=== PATIENT | female | born 1950 | race Caucasian/White ===

== ENCOUNTER 2017-10-29 05:45 | Inpatient (IN) | payer MEDICARE, OTHER ==
[2017-10-29 07:07] LABS: ADD MAN DIFF? NO
[2017-10-29 07:11] LABS: WHITE BLOOD COUNT 15.7 10^3/ul (4.8-10.8)
[2017-10-29 07:11] LABS: ABNORMAL IP MESSAGE 1; BASOPHILS % 0.2 % (0.0-2.0); EOSINOPHILS % 0.1 % (0.0-7.0); HEMATOCRIT 33.8 % (37.0-47.0); HEMOGLOBIN 12.5 g/dl (12.0-16.0); LYMPHOCYTES # 1.6 10^3/ul (0.8-2.9); LYMPHOCYTES % 10.4 % (15.0-51.0); MEAN CORPUSCULAR HEMOGLOBIN 33.2 pg (29.0-33.0); MEAN CORPUSCULAR VOLUME 89.7 fl (82.0-101.0); MEAN PLATELET VOLUME 10.5 fl (7.4-10.4); MONOCYTE # 2.1 10^3/ul (0.3-0.9); MONOCYTES % 13.2 % (0.0-11.0); NEUTROPHIL # 11.9 10^3/ul (1.6-7.5); NEUTROPHILS % 75.7 % (39.0-77.0); PLATELET COUNT 221 10^3/UL (140-415); RED BLOOD COUNT 3.77 10^6/ul (4.20-5.40); RED CELL DISTRIBUTION WIDTH 13.1 % (11.5-14.5)
[2017-10-29 07:12] LABS: ADD UMIC YES; UR ASCORBIC ACID NEGATIVE (NEGATIVE); UR BILIRUBIN (Dip) NEGATIVE (NEGATIVE); UR BLOOD (Dip) 1+ mg/dL (NEGATIVE); UR CLARITY CLEAR (CLEAR); UR COLOR YELLOW (YELLOW); UR GLUCOSE (Dip) NEGATIVE (NEGATIVE); UR KETONES (Dip) 1+ mg/dL (NEGATIVE); UR LEUKOCYTE ESTERASE (Dip) NEGATIVE Leu/ul (NEGATIVE); UR NITRITE (Dip) NEGATIVE (NEGATIVE); UR RBC 1 /HPF (0-5); UR SPECIFIC GRAVITY (Dip) 1.016 (1.003-1.030); UR TOTAL PROTEIN (Dip) NEGATIVE (NEGATIVE); UR UROBILINOGEN (Dip) NEGATIVE (NEGATIVE); UR WBC 1 /HPF (0-5)
[2017-10-29] MEDS: LORAZEPAM 2 MG INJ IV ×2 (07:21→09:46)
[2017-10-29 07:25] LABS: POSITIVE DIFF @See below
[2017-10-29] MEDS: HALOPERIDOL 5 MG INJ IM (07:27)
[2017-10-29 07:29] LABS: ALANINE AMINOTRANSFERASE 43 IU/L (13-69); ALBUMIN 4.9 g/dl (3.3-4.9); ALBUMIN/GLOBULIN RATIO 1.88; ALKALINE PHOSPHATASE 91 IU/L (42-121); ANION GAP 27 (8-16); ASPARTATE AMINO TRANSFERASE 48 IU/L (15-46); BILIRUBIN,INDIRECT 0.7 mg/dl (0-1.1); BILIRUBIN,TOTAL 0.7 mg/dl (0.2-1.3); BLOOD UREA NITROGEN 27 mg/dl (7-20); CARBON DIOXIDE 23 mmol/L (21-31); CHLORIDE 92 mmol/L (97-110); CREATININE 1.07 mg/dl (0.44-1.00); GLUCOSE 127 mg/dl (70-220); INR 0.99; POTASSIUM 3.5 mmol/L (3.5-5.1); PROTIME 13.2 Sec (11.9-14.9); SODIUM 138 mmol/L (135-144); TOTAL PROTEIN 7.5 g/dl (6.1-8.1)
[2017-10-29 07:30] LABS: PARTIAL THROMBOPLASTIN TIME 33.7 Sec (25.0-35.0)
[2017-10-29] MEDS: SODIUM CHLORIDE 0.9% 1L BAG IV* (07:32)
[2017-10-29 07:37] LABS: ACETAMINOPHEN < 10.0 ug/ml (10.0-30.0); ETHANOL < 10.0 mg/dl; SALICYLATE < 1.0 mg/dl (5.0-30.0)
[2017-10-29 07:44] LABS: LACTIC ACID 2.3 mmol/L (0.5-2.0)
[2017-10-29 07:44] LABS: TROPONIN-I < 0.012 ng/ml (0.00-0.12)
[2017-10-29 07:56] LABS: AMPHETAMINE/METHAMPHETAMINE Negative (NEGATIVE); BARBITURATES Negative (NEGATIVE); BENZODIAZEPINES Negative (NEGATIVE); CANNABINOIDS Negative (NEGATIVE); COCAINE Negative (NEGATIVE); OPIATES Positive (NEGATIVE)
[2017-10-29 08:21] LABS: LACTIC ACID 1.7 mmol/L (0.5-2.0)
[2017-10-29] MEDS ORDERED: ONDANSETRON 4 MG INJ IV (09:00)
[2017-10-29] MEDS ORDERED: ACETAMINOPHEN 325 MG TAB PO (09:00)
[2017-10-29] MEDS: AZTREONAM 1 GM/NS (PMX) 50 ML IVPB (09:25)
[2017-10-29] MEDS: VANCOMYCIN 1 GM (PMX) 250 ML IVPB (09:45)
[2017-10-29] MEDS: D5W-0.45 NACL + KCL 20 MEQ 1,000 ML IV (16:20)
[2017-10-29] MEDS: CEFEPIME 1GM/50 ML (PMX) 50 ML IVPB ×2 (16:20→22:54)
[2017-10-29] MEDS: LEVETIRACETAM 1000 MG (PMX) 100 ML IVPB (20:17)
[2017-10-29] MEDS ORDERED: LEVETIRACETAM 500 MG (PMX) 100 ML IVPB (21:00)
[2017-10-30] MEDS ORDERED: VANCOMYCIN IV PER PHARMACY XX (01:00)
[2017-10-30] MEDS: D5W-0.45 NACL + KCL 20 MEQ 1,000 ML IV ×3 (02:20→15:40)
[2017-10-30] MEDS: CEFEPIME 1GM/50 ML (PMX) 50 ML IVPB ×3 (05:31→22:25)
[2017-10-30] MEDS: LEVOTHYROXINE 88 MCG TAB PO (05:32)
[2017-10-30 05:54] LABS: ADD MAN DIFF? NO
[2017-10-30 05:59] LABS: BASOPHILS % 0.1 % (0.0-2.0); EOSINOPHILS % 0.4 % (0.0-7.0); HEMATOCRIT 30.1 % (37.0-47.0); HEMOGLOBIN 10.9 g/dl (12.0-16.0); LYMPHOCYTES # 1.4 10^3/ul (0.8-2.9); LYMPHOCYTES % 18.2 % (15.0-51.0); MEAN CORPUSCULAR HEMOGLOBIN 32.7 pg (29.0-33.0); MEAN CORPUSCULAR HGB CONC 36.2 g/dl (32.0-37.0); MEAN CORPUSCULAR VOLUME 90.4 fl (82.0-101.0); MEAN PLATELET VOLUME 10.1 fl (7.4-10.4); MONOCYTES % 12.5 % (0.0-11.0); NEUTROPHIL # 5.2 10^3/ul (1.6-7.5); NEUTROPHILS % 68.3 % (39.0-77.0); PLATELET COUNT 156 10^3/UL (140-415); RED BLOOD COUNT 3.33 10^6/ul (4.20-5.40); RED CELL DISTRIBUTION WIDTH 13.3 % (11.5-14.5)
[2017-10-30 05:59] LABS: WHITE BLOOD COUNT 7.7 10^3/ul (4.8-10.8)
[2017-10-30] MEDS: VANCOMYCIN 1.5 GM in SOD CHLORIDE 0.9% 250 ML IVPB (06:07)
[2017-10-30 06:34] LABS: ALANINE AMINOTRANSFERASE 39 IU/L (13-69); ALBUMIN 4.1 g/dl (3.3-4.9); ALBUMIN/GLOBULIN RATIO 1.78; ALKALINE PHOSPHATASE 64 IU/L (42-121); ANION GAP 18 (8-16); ASPARTATE AMINO TRANSFERASE 37 IU/L (15-46); BILIRUBIN,INDIRECT 0.6 mg/dl (0-1.1); BILIRUBIN,TOTAL 0.6 mg/dl (0.2-1.3); BLOOD UREA NITROGEN 8 mg/dl (7-20); CALCIUM 9.3 mg/dl (8.4-10.2); CARBON DIOXIDE 26 mmol/L (21-31); CHLORIDE 105 mmol/L (97-110); CREATININE 0.66 mg/dl (0.44-1.00); GLUCOSE 123 mg/dl (70-220); MAGNESIUM 1.3 mg/dl (1.7-2.5); SODIUM 146 mmol/L (135-144); TOTAL PROTEIN 6.4 g/dl (6.1-8.1)
[2017-10-30 07:04] LABS: POTASSIUM 2.9 mmol/L (3.5-5.1)
[2017-10-30] MEDS ORDERED: LEVETIRACETAM 500 MG TAB PO (09:00)
[2017-10-30] MEDS: LEVETIRACETAM 1000 MG (PMX) 100 ML IVPB ×2 (09:20→21:32)
[2017-10-30] MEDS: MAGNESIUM SULFATE 3 GM in DEXTROSE 5% 100 ML IVPB (10:08)
[2017-10-30] MEDS: METOPROLOL (XL) 100 MG TAB PO (10:13)
[2017-10-30] MEDS: POTASSIUM CHLORIDE 40 MEQ in DEXTROSE 5% 250 ML IV (13:32)
[2017-10-30] MEDS: VANCOMYCIN 1 GM 250 ML IVPB (18:31)
[2017-10-31] MEDS: D5W-0.45 NACL + KCL 20 MEQ 1,000 ML IV ×3 (05:00→21:58)
[2017-10-31] MEDS: LEVOTHYROXINE 88 MCG TAB PO (05:40)
[2017-10-31] MEDS: CEFEPIME 1GM/50 ML (PMX) 50 ML IVPB ×3 (05:40→21:58)
[2017-10-31] MEDS: VANCOMYCIN 1 GM 250 ML IVPB ×2 (06:25→17:37)
[2017-10-31 06:48] LABS: ADD MAN DIFF? NO
[2017-10-31 06:54] LABS: WHITE BLOOD COUNT 6.1 10^3/ul (4.8-10.8)
[2017-10-31 06:54] LABS: BASOPHILS % 0.3 % (0.0-2.0); EOSINOPHILS % 0.5 % (0.0-7.0); HEMATOCRIT 30.8 % (37.0-47.0); HEMOGLOBIN 10.6 g/dl (12.0-16.0); LYMPHOCYTES % 16.3 % (15.0-51.0); MEAN CORPUSCULAR HEMOGLOBIN 31.8 pg (29.0-33.0); MEAN CORPUSCULAR HGB CONC 34.4 g/dl (32.0-37.0); MEAN CORPUSCULAR VOLUME 92.5 fl (82.0-101.0); MONOCYTE # 0.8 10^3/ul (0.3-0.9); MONOCYTES % 12.4 % (0.0-11.0); NEUTROPHIL # 4.2 10^3/ul (1.6-7.5); NEUTROPHILS % 69.7 % (39.0-77.0); PLATELET COUNT 169 10^3/UL (140-415); RED BLOOD COUNT 3.33 10^6/ul (4.20-5.40); RED CELL DISTRIBUTION WIDTH 13.7 % (11.5-14.5)
[2017-10-31 07:27] LABS: ALANINE AMINOTRANSFERASE 38 IU/L (13-69); ALBUMIN 3.9 g/dl (3.3-4.9); ALBUMIN/GLOBULIN RATIO 1.39; ALKALINE PHOSPHATASE 70 IU/L (42-121); ANION GAP 13 (8-16); ASPARTATE AMINO TRANSFERASE 23 IU/L (15-46); BILIRUBIN,INDIRECT 0.5 mg/dl (0-1.1); BILIRUBIN,TOTAL 0.5 mg/dl (0.2-1.3); BLOOD UREA NITROGEN 5 mg/dl (7-20); CALCIUM 9.2 mg/dl (8.4-10.2); CARBON DIOXIDE 31 mmol/L (21-31); CHLORIDE 105 mmol/L (97-110); CREATININE 0.62 mg/dl (0.44-1.00); GLUCOSE 121 mg/dl (70-220); MAGNESIUM 1.6 mg/dl (1.7-2.5); POTASSIUM 3.5 mmol/L (3.5-5.1); SODIUM 145 mmol/L (135-144); TOTAL PROTEIN 6.7 g/dl (6.1-8.1)
[2017-10-31] MEDS: LEVETIRACETAM 1000 MG (PMX) 100 ML IVPB ×2 (08:30→20:42)
[2017-10-31] MEDS: METOPROLOL (XL) 100 MG TAB PO (08:30)
[2017-10-31] MEDS: POTASSIUM CHLORIDE 100 ML IVPB (10:52)
[2017-10-31] MEDS ORDERED: VITAMIN A & D 5 GM OINT PACKET TOP (10:58)
[2017-10-31] MEDS: LORAZEPAM 0.5 MG TAB PO ×2 (13:35→20:41)
[2017-10-31] MEDS: MAGNESIUM SULFATE 3 GM in DEXTROSE 5% 100 ML IVPB (13:54)
[2017-10-31 17:58] LABS: VANCOMYCIN,TROUGH 8.8 ug/ml (10.0-20.0)
[2017-11-01] MEDS: LORAZEPAM 0.5 MG TAB PO (00:37)
[2017-11-01] MEDS: VANCOMYCIN 1.5 GM in SOD CHLORIDE 0.9% 250 ML IVPB ×2 (01:47→15:03)
[2017-11-01] MEDS: LEVOTHYROXINE 88 MCG TAB PO (05:59)
[2017-11-01] MEDS: CEFEPIME 1GM/50 ML (PMX) 50 ML IVPB ×3 (05:59→21:56)
[2017-11-01 06:13] LABS: ADD MAN DIFF? NO
[2017-11-01 06:19] LABS: BASOPHILS % 0.5 % (0.0-2.0); EOSINOPHILS # 0.1 10^3/ul (0.0-0.5); EOSINOPHILS % 0.9 % (0.0-7.0); HEMATOCRIT 31.7 % (37.0-47.0); HEMOGLOBIN 11.1 g/dl (12.0-16.0); LYMPHOCYTES # 0.9 10^3/ul (0.8-2.9); LYMPHOCYTES % 16.6 % (15.0-51.0); MEAN CORPUSCULAR HEMOGLOBIN 32.6 pg (29.0-33.0); MEAN PLATELET VOLUME 9.6 fl (7.4-10.4); MONOCYTE # 0.8 10^3/ul (0.3-0.9); MONOCYTES % 13.6 % (0.0-11.0); NEUTROPHIL # 3.7 10^3/ul (1.6-7.5); NEUTROPHILS % 66.3 % (39.0-77.0); NUCLEATED RED BLOOD CELLS # 0.1 10^3/ul (0.0-0.0); NUCLEATED RED BLOOD CELLS% 1.1 /100WBC (0.0-0.0); PLATELET COUNT 172 10^3/UL (140-415); RED BLOOD COUNT 3.41 10^6/ul (4.20-5.40); RED CELL DISTRIBUTION WIDTH 13.9 % (11.5-14.5)
[2017-11-01 06:19] LABS: WHITE BLOOD COUNT 5.6 10^3/ul (4.8-10.8)
[2017-11-01 06:39] LABS: ANION GAP 16 (8-16); BLOOD UREA NITROGEN 9 mg/dl (7-20); CARBON DIOXIDE 29 mmol/L (21-31); CHLORIDE 102 mmol/L (97-110); GLUCOSE 124 mg/dl (70-220); MAGNESIUM 1.6 mg/dl (1.7-2.5); SODIUM 144 mmol/L (135-144)
[2017-11-01] MEDS: D5W-0.45 NACL + KCL 20 MEQ 1,000 ML IV ×2 (07:40→21:55)
[2017-11-01] MEDS: LEVETIRACETAM 1000 MG (PMX) 100 ML IVPB ×2 (09:47→21:00)
[2017-11-01] MEDS: METOPROLOL (XL) 100 MG TAB PO (09:47)
[2017-11-01] MEDS: MAGNESIUM SULFATE 4 GM/100 ML 100 ML IVPB (11:51)
[2017-11-01] MEDS: POTASSIUM CHLORIDE 100 ML IVPB ×2 (11:51→14:18)
[2017-11-01] MEDS: ZOLPIDEM 5 MG TAB PO (21:00)
[2017-11-02] MEDS: VANCOMYCIN 1.5 GM in SOD CHLORIDE 0.9% 250 ML IVPB ×2 (01:24→14:35)
[2017-11-02 05:30] LABS: ADD MAN DIFF? NO
[2017-11-02 05:35] LABS: BASOPHILS % 0.6 % (0.0-2.0); EOSINOPHILS # 0.1 10^3/ul (0.0-0.5); HEMATOCRIT 36.3 % (37.0-47.0); HEMOGLOBIN 12.4 g/dl (12.0-16.0); LYMPHOCYTES # 1.2 10^3/ul (0.8-2.9); LYMPHOCYTES % 18.8 % (15.0-51.0); MEAN CORPUSCULAR HEMOGLOBIN 32.3 pg (29.0-33.0); MEAN CORPUSCULAR HGB CONC 34.2 g/dl (32.0-37.0); MEAN CORPUSCULAR VOLUME 94.5 fl (82.0-101.0); MEAN PLATELET VOLUME 9.3 fl (7.4-10.4); MONOCYTES % 15.7 % (0.0-11.0); NEUTROPHIL # 3.8 10^3/ul (1.6-7.5); NEUTROPHILS % 60.9 % (39.0-77.0); PLATELET COUNT 220 10^3/UL (140-415); RED BLOOD COUNT 3.84 10^6/ul (4.20-5.40); RED CELL DISTRIBUTION WIDTH 13.9 % (11.5-14.5)
[2017-11-02 05:35] LABS: WHITE BLOOD COUNT 6.2 10^3/ul (4.8-10.8)
[2017-11-02] MEDS: LEVOTHYROXINE 88 MCG TAB PO (05:49)
[2017-11-02] MEDS: CEFEPIME 1GM/50 ML (PMX) 50 ML IVPB ×3 (05:51→21:08)
[2017-11-02 06:02] LABS: ANION GAP 16 (8-16); BLOOD UREA NITROGEN 9 mg/dl (7-20); CALCIUM 9.7 mg/dl (8.4-10.2); CARBON DIOXIDE 29 mmol/L (21-31); CHLORIDE 107 mmol/L (97-110); CREATININE 0.66 mg/dl (0.44-1.00); GLUCOSE 128 mg/dl (70-220); MAGNESIUM 1.8 mg/dl (1.7-2.5); POTASSIUM 3.9 mmol/L (3.5-5.1); SODIUM 148 mmol/L (135-144)
[2017-11-02] MEDS: METOPROLOL (XL) 100 MG TAB PO (08:57)
[2017-11-02] MEDS: D5W-0.45 NACL + KCL 20 MEQ 1,000 ML IV ×3 (10:20→23:22)
[2017-11-02] MEDS: LEVETIRACETAM 500 MG TAB PO ×2 (10:43→21:08)
[2017-11-02] MEDS: MAGNESIUM SULFATE 1 GM/D5W 100 ML IVPB (12:24)
[2017-11-02 14:47] LABS: VANCOMYCIN,TROUGH 17.2 ug/ml (10.0-20.0)
[2017-11-02] MEDS: ZOLPIDEM 5 MG TAB PO (21:08)
[2017-11-03] MEDS: VANCOMYCIN 1 GM 250 ML IVPB ×2 (03:31→16:10)
[2017-11-03] MEDS ORDERED: VANCOMYCIN 1.25 GM in SOD CHLORIDE 0.9% 250 ML IVPB (04:00)
[2017-11-03] MEDS: LEVOTHYROXINE 88 MCG TAB PO (05:59)
[2017-11-03] MEDS: CEFEPIME 1GM/50 ML (PMX) 50 ML IVPB ×2 (05:59→15:14)
[2017-11-03 06:30] LABS: ADD MAN DIFF? NO
[2017-11-03 06:38] LABS: BASOPHILS % 0.5 % (0.0-2.0); EOSINOPHILS # 0.1 10^3/ul (0.0-0.5); HEMATOCRIT 35.2 % (37.0-47.0); HEMOGLOBIN 12.1 g/dl (12.0-16.0); LYMPHOCYTES # 1.1 10^3/ul (0.8-2.9); LYMPHOCYTES % 14.1 % (15.0-51.0); MEAN CORPUSCULAR HEMOGLOBIN 32.5 pg (29.0-33.0); MEAN CORPUSCULAR HGB CONC 34.4 g/dl (32.0-37.0); MEAN CORPUSCULAR VOLUME 94.6 fl (82.0-101.0); MEAN PLATELET VOLUME 9.4 fl (7.4-10.4); MONOCYTE # 0.9 10^3/ul (0.3-0.9); MONOCYTES % 10.9 % (0.0-11.0); NEUTROPHIL # 5.7 10^3/ul (1.6-7.5); NEUTROPHILS % 70.9 % (39.0-77.0); PLATELET COUNT 224 10^3/UL (140-415); RED BLOOD COUNT 3.72 10^6/ul (4.20-5.40); RED CELL DISTRIBUTION WIDTH 13.9 % (11.5-14.5)
[2017-11-03 07:04] LABS: ANION GAP 19 (8-16); BLOOD UREA NITROGEN 9 mg/dl (7-20); CALCIUM 9.9 mg/dl (8.4-10.2); CARBON DIOXIDE 25 mmol/L (21-31); CHLORIDE 106 mmol/L (97-110); CREATININE 0.55 mg/dl (0.44-1.00); GLUCOSE 139 mg/dl (70-220); MAGNESIUM 1.3 mg/dl (1.7-2.5); POTASSIUM 3.6 mmol/L (3.5-5.1); SODIUM 146 mmol/L (135-144)
[2017-11-03] MEDS: LEVETIRACETAM 500 MG TAB PO ×2 (09:00→20:18)
[2017-11-03] MEDS: METOPROLOL (XL) 100 MG TAB PO (09:00)
[2017-11-03] MEDS: D5W-0.45 NACL + KCL 20 MEQ 1,000 ML IV (15:16)
[2017-11-03] MEDS: POTASSIUM CHLORIDE (SR) 20 MEQ TAB PO (15:16)
[2017-11-03] MEDS: MAGNESIUM SULFATE 4 GM/100 ML 100 ML IVPB (15:19)
[2017-11-03] MEDS: ENOXAPARIN 30 MG/0.3 ML SYG SC (15:21)
[2017-11-03] MEDS: ZOLPIDEM 5 MG TAB PO (21:18)
[2017-11-03] MEDS: ACETAMINOPHEN 500 MG TAB PO (21:29)
[2017-11-03] MEDS ORDERED: HYDROCODONE/APAP (5/325) TAB PO (21:30)
[2017-11-04] MEDS: D5W-0.45 NACL + KCL 20 MEQ 1,000 ML IV ×2 (01:37→06:49)
[2017-11-04] MEDS: LEVOTHYROXINE 88 MCG TAB PO (05:32)
[2017-11-04 06:08] LABS: ADD MAN DIFF? NO
[2017-11-04 06:11] LABS: WHITE BLOOD COUNT 7.8 10^3/ul (4.8-10.8)
[2017-11-04 06:11] LABS: BASOPHILS % 0.5 % (0.0-2.0); EOSINOPHILS # 0.1 10^3/ul (0.0-0.5); EOSINOPHILS % 0.9 % (0.0-7.0); HEMATOCRIT 35.4 % (37.0-47.0); HEMOGLOBIN 11.8 g/dl (12.0-16.0); LYMPHOCYTES # 1.1 10^3/ul (0.8-2.9); LYMPHOCYTES % 13.7 % (15.0-51.0); MEAN CORPUSCULAR HEMOGLOBIN 31.9 pg (29.0-33.0); MEAN CORPUSCULAR HGB CONC 33.3 g/dl (32.0-37.0); MEAN CORPUSCULAR VOLUME 95.7 fl (82.0-101.0); MEAN PLATELET VOLUME 9.8 fl (7.4-10.4); NEUTROPHIL # 5.4 10^3/ul (1.6-7.5); NEUTROPHILS % 69.6 % (39.0-77.0); PLATELET COUNT 246 10^3/UL (140-415); RED CELL DISTRIBUTION WIDTH 13.9 % (11.5-14.5)
[2017-11-04 06:48] LABS: ANION GAP 17 (8-16); BLOOD UREA NITROGEN 10 mg/dl (7-20); CALCIUM 9.8 mg/dl (8.4-10.2); CARBON DIOXIDE 26 mmol/L (21-31); CHLORIDE 105 mmol/L (97-110); CREATININE 0.64 mg/dl (0.44-1.00); GLUCOSE 161 mg/dl (70-220); MAGNESIUM 1.6 mg/dl (1.7-2.5); POTASSIUM 4.3 mmol/L (3.5-5.1); SODIUM 144 mmol/L (135-144)
[2017-11-04] MEDS: LEVETIRACETAM 500 MG TAB PO (09:19)
[2017-11-04] MEDS: METOPROLOL (XL) 100 MG TAB PO (09:19)
[2017-11-04] MEDS: ENOXAPARIN 30 MG/0.3 ML SYG SC (09:26)
[2017-11-04] MEDS: MAGNESIUM SULFATE 4 GM/100 ML 100 ML IVPB (11:09)
== END 2017-11-04 16:35 | disposition home or self-care (01) | DRG 101 ==
LOC: E/R 05:45 → MS2 09:36
DX: G40.909 Epilepsy, unspecified, not intractable, without status epilepticus (principal); R78.81 Bacteremia; C91.10 Chronic lymphocytic leukemia of B-cell type not having achieved remission; F05 Delirium due to known physiological condition; E87.0 Hyperosmolality and hypernatremia; I10 Essential (primary) hypertension; M79.7 Fibromyalgia; E03.9 Hypothyroidism, unspecified; E83.42 Hypomagnesemia; E87.6 Hypokalemia; Z91.81 History of falling
CPT/HCPCS: 36415; 70450; 71045; 80048; 80053; 80202; 80306; 80307; 81001; 83605; 83735; 84484; 85025; 85610; 85730; 87040; 87045; 87086; 93005; 96361; 96365; 96366; 96368; 96372; 96375; 97110; 97116; 97161; 99291-25

== ENCOUNTER 2018-04-20 22:09 | Inpatient (IN) | payer MEDICARE, OTHER ==
[2018-04-20] MEDS ORDERED: LORAZEPAM 2 MG INJ (22:13)
[2018-04-20] MEDS: LORAZEPAM 2 MG INJ IV (22:33)
[2018-04-20] MEDS: LEVETIRACETAM 1000 MG (PMX) 100 ML IVPB (22:33)
[2018-04-20 23:02] LABS: ADD MAN DIFF? NO; URINE BLOOD (Dip) POC 1+ (NEGATIVE); URINE KETONES (Dip) POC 1+ (NEGATIVE); URINE LEUKOCYTE EST (Dip) POC Negative (NEGATIVE); URINE NITRITE (Dip) POC Negative (NEGATIVE); URINE TOTAL PROTEIN POC 2+ (NEGATIVE)
[2018-04-20 23:02] LABS: URINE PH (Dip) POC 5.5 (5.0-8.5)
[2018-04-20 23:05] LABS: WHITE BLOOD COUNT 8.2 10^3/ul (4.8-10.8)
[2018-04-20 23:05] LABS: BASOPHILS % 0.4 % (0.0-2.0); EOSINOPHILS % 0.4 % (0.0-7.0); HEMATOCRIT 36.8 % (37.0-47.0); HEMOGLOBIN 12.3 g/dl (12.0-16.0); LYMPHOCYTES # 1.4 10^3/ul (0.8-2.9); MEAN CORPUSCULAR HEMOGLOBIN 33.5 pg (29.0-33.0); MEAN CORPUSCULAR HGB CONC 33.4 g/dl (32.0-37.0); MEAN CORPUSCULAR VOLUME 100.3 fl (82.0-101.0); MEAN PLATELET VOLUME 10.5 fl (7.4-10.4); MONOCYTE # 0.7 10^3/ul (0.3-0.9); NEUTROPHIL # 5.9 10^3/ul (1.6-7.5); NEUTROPHILS % 72.3 % (39.0-77.0); PLATELET COUNT 219 10^3/UL (140-415); RED BLOOD COUNT 3.67 10^6/ul (4.20-5.40); RED CELL DISTRIBUTION WIDTH 13.7 % (11.5-14.5)
[2018-04-20 23:23] LABS: MAGNESIUM 1.1 mg/dl (1.7-2.5)
[2018-04-20 23:23] LABS: ALANINE AMINOTRANSFERASE 22 IU/L (13-69); ALBUMIN 4.5 g/dl (3.3-4.9); ALBUMIN/GLOBULIN RATIO 1.55; ALKALINE PHOSPHATASE 56 IU/L (42-121); ANION GAP 25 (8-16); ASPARTATE AMINO TRANSFERASE 39 IU/L (15-46); BILIRUBIN,INDIRECT 0.2 mg/dl (0-1.1); BILIRUBIN,TOTAL 0.2 mg/dl (0.2-1.3); BLOOD UREA NITROGEN 14 mg/dl (7-20); CALCIUM 10.4 mg/dl (8.4-10.2); CARBON DIOXIDE 17 mmol/L (21-31); CHLORIDE 102 mmol/L (97-110); CREATININE 0.76 mg/dl (0.44-1.00); GLUCOSE 271 mg/dl (70-220); POTASSIUM 3.2 mmol/L (3.5-5.1); SODIUM 141 mmol/L (135-144); TOTAL PROTEIN 7.4 g/dl (6.1-8.1)
[2018-04-20 23:24] LABS: INR 0.83; PROTIME 11.5 Sec (11.9-14.9); PT RATIO 0.9
[2018-04-20 23:25] LABS: PARTIAL THROMBOPLASTIN TIME 25.5 Sec (25.0-35.0)
[2018-04-20 23:27] LABS: ADD UMIC YES; UR ASCORBIC ACID NEGATIVE (NEGATIVE); UR BACTERIA FEW /HPF (NONE SEEN); UR BILIRUBIN (Dip) NEGATIVE (NEGATIVE); UR BLOOD (Dip) 1+ mg/dL (NEGATIVE); UR CLARITY CLEAR (CLEAR); UR COLOR STRAW (YELLOW); UR GLUCOSE (Dip) 3+ mg/dL (NEGATIVE); UR KETONES (Dip) TRACE mg/dL (NEGATIVE); UR LEUKOCYTE ESTERASE (Dip) NEGATIVE Leu/ul (NEGATIVE); UR NITRITE (Dip) NEGATIVE (NEGATIVE); UR RBC 1 /HPF (0-5); UR SPECIFIC GRAVITY (Dip) 1.017 (1.003-1.030); UR TOTAL PROTEIN (Dip) 1+ mg/dl (NEGATIVE); UR UROBILINOGEN (Dip) NEGATIVE (NEGATIVE); UR WBC 1 /HPF (0-5)
[2018-04-20 23:32] LABS: LACTIC ACID 13.8 mmol/L (0.5-2.0)
[2018-04-20 23:34] LABS: TROPONIN-I < 0.012 ng/ml (0.000-0.120)
[2018-04-20] MEDS: SOD CHLORIDE 0.9% IV (23:50)
[2018-04-20] MEDS: MAGNESIUM SULFATE 2 GM/50 ML 50 ML IVPB (23:50)
[2018-04-21 00:05] LABS: ETHANOL < 10.0 mg/dl
[2018-04-21] MEDS: MEROPENEM 1 GM/50ML(PMX) 50 ML IVPB (00:09)
[2018-04-21] MEDS: LORAZEPAM 2 MG INJ IV (00:11)
[2018-04-21 00:17] LABS: AMPHETAMINE/METHAMPHETAMINE Negative (NEGATIVE); BARBITURATES Negative (NEGATIVE); BENZODIAZEPINES Negative (NEGATIVE); CANNABINOIDS Negative (NEGATIVE); COCAINE Negative (NEGATIVE)
[2018-04-21 00:19] LABS: OPIATES Positive (NEGATIVE)
[2018-04-21 01:16] LABS: LACTIC ACID 3.4 mmol/L (0.5-2.0)
[2018-04-21] MEDS: POTASSIUM CHLORIDE 100 ML IVPB ×2 (01:47→03:47)
[2018-04-21] MEDS: VANCOMYCIN 1 GM (PMX) 250 ML IVPB (03:47)
[2018-04-21] MEDS: LEVOTHYROXINE 88 MCG TAB PO ×2 (06:00→09:24)
[2018-04-21] MEDS: SOD CHLORIDE 0.45% 1,000 ML IV ×2 (06:24→20:55)
[2018-04-21 06:40] LABS: LACTIC ACID 2.1 mmol/L (0.5-2.0)
[2018-04-21 07:55] LABS: ADD MAN DIFF? NO; BASOPHILS % 0.1 % (0.0-2.0); EOSINOPHILS % 0.1 % (0.0-7.0); HEMATOCRIT 33.2 % (37.0-47.0); HEMOGLOBIN 11.3 g/dl (12.0-16.0); LYMPHOCYTES # 0.8 10^3/ul (0.8-2.9); LYMPHOCYTES % 7.9 % (15.0-51.0); MEAN CORPUSCULAR HEMOGLOBIN 33.5 pg (29.0-33.0); MEAN CORPUSCULAR VOLUME 98.5 fl (82.0-101.0); MEAN PLATELET VOLUME 11.1 fl (7.4-10.4); MONOCYTE # 0.9 10^3/ul (0.3-0.9); MONOCYTES % 8.4 % (0.0-11.0); NEUTROPHIL # 8.7 10^3/ul (1.6-7.5); NEUTROPHILS % 82.8 % (39.0-77.0); PLATELET COUNT 231 10^3/UL (140-415); RED BLOOD COUNT 3.37 10^6/ul (4.20-5.40); RED CELL DISTRIBUTION WIDTH 13.9 % (11.5-14.5)
[2018-04-21 07:55] LABS: WHITE BLOOD COUNT 10.6 10^3/ul (4.8-10.8)
[2018-04-21 08:02] LABS: ALANINE AMINOTRANSFERASE 15 IU/L (13-69); ALBUMIN 4.4 g/dl (3.3-4.9); ALBUMIN/GLOBULIN RATIO 1.62; ALKALINE PHOSPHATASE 48 IU/L (42-121); ANION GAP 12 (8-16); ASPARTATE AMINO TRANSFERASE 61 IU/L (15-46); BILIRUBIN,INDIRECT 0.5 mg/dl (0-1.1); BILIRUBIN,TOTAL 0.5 mg/dl (0.2-1.3); BLOOD UREA NITROGEN 11 mg/dl (7-20); CALCIUM 9.2 mg/dl (8.4-10.2); CARBON DIOXIDE 27 mmol/L (21-31); CHLORIDE 105 mmol/L (97-110); CREATININE 0.58 mg/dl (0.44-1.00); GLUCOSE 147 mg/dl (70-220); MAGNESIUM 1.4 mg/dl (1.7-2.5); POTASSIUM 4.4 mmol/L (3.5-5.1); SODIUM 140 mmol/L (135-144); TOTAL PROTEIN 7.1 g/dl (6.1-8.1)
[2018-04-21] MEDS: LEVETIRACETAM 500 MG TAB PO ×2 (09:22→20:55)
[2018-04-21] MEDS: METOPROLOL (XL) 100 MG TAB PO (09:23)
[2018-04-21] MEDS: AMLODIPINE 5 MG TAB PO (09:23)
[2018-04-21] MEDS: VENLAFAXINE (XR) 75 MG CAP PO (09:23)
[2018-04-21] MEDS: CEFTRIAXONE 1 GM/50 ML (PMX) 50 ML IVPB (12:58)
[2018-04-21] MEDS: MAGNESIUM SULFATE 4 GM/100 ML 100 ML IVPB (12:58)
[2018-04-21] MEDS: ATORVASTATIN 40 MG TAB PO (20:55)
[2018-04-21] MEDS: ACETAMINOPHEN 500 MG TAB PO (22:29)
[2018-04-22] MEDS: LORAZEPAM 2 MG INJ IV ×2 (02:17→23:26)
[2018-04-22 02:41] LABS: ADD UMIC NO; UR ASCORBIC ACID NEGATIVE (NEGATIVE); UR BILIRUBIN (Dip) NEGATIVE (NEGATIVE); UR BLOOD (Dip) NEGATIVE (NEGATIVE); UR CLARITY CLEAR (CLEAR); UR COLOR YELLOW (YELLOW); UR GLUCOSE (Dip) 1+ mg/dL (NEGATIVE); UR KETONES (Dip) NEGATIVE (NEGATIVE); UR LEUKOCYTE ESTERASE (Dip) NEGATIVE Leu/ul (NEGATIVE); UR NITRITE (Dip) NEGATIVE (NEGATIVE); UR SPECIFIC GRAVITY (Dip) 1.013 (1.003-1.030); UR TOTAL PROTEIN (Dip) NEGATIVE (NEGATIVE); UR UROBILINOGEN (Dip) NEGATIVE (NEGATIVE)
[2018-04-22 06:14] LABS: ADD MAN DIFF? NO
[2018-04-22 06:16] LABS: WHITE BLOOD COUNT 6.2 10^3/ul (4.8-10.8)
[2018-04-22 06:16] LABS: BASOPHILS % 0.2 % (0.0-2.0); EOSINOPHILS % 0.3 % (0.0-7.0); HEMATOCRIT 33.3 % (37.0-47.0); HEMOGLOBIN 11.3 g/dl (12.0-16.0); LYMPHOCYTES # 1.1 10^3/ul (0.8-2.9); LYMPHOCYTES % 17.3 % (15.0-51.0); MEAN CORPUSCULAR HEMOGLOBIN 32.8 pg (29.0-33.0); MEAN CORPUSCULAR HGB CONC 33.9 g/dl (32.0-37.0); MEAN CORPUSCULAR VOLUME 96.8 fl (82.0-101.0); MEAN PLATELET VOLUME 9.8 fl (7.4-10.4); MONOCYTE # 0.6 10^3/ul (0.3-0.9); MONOCYTES % 9.8 % (0.0-11.0); NEUTROPHIL # 4.5 10^3/ul (1.6-7.5); NEUTROPHILS % 71.6 % (39.0-77.0); PLATELET COUNT 201 10^3/UL (140-415); RED BLOOD COUNT 3.44 10^6/ul (4.20-5.40); RED CELL DISTRIBUTION WIDTH 13.7 % (11.5-14.5)
[2018-04-22] MEDS: HYDROCODONE/APAP (5/325) TAB PO ×4 (06:41→20:04)
[2018-04-22 07:15] LABS: ANION GAP 14 (8-16); BLOOD UREA NITROGEN 9 mg/dl (7-20); CALCIUM 9.3 mg/dl (8.4-10.2); CARBON DIOXIDE 32 mmol/L (21-31); CHLORIDE 98 mmol/L (97-110); GLUCOSE 141 mg/dl (70-220); MAGNESIUM 1.5 mg/dl (1.7-2.5); POTASSIUM 3.1 mmol/L (3.5-5.1); SODIUM 141 mmol/L (135-144)
[2018-04-22] MEDS: SOD CHLORIDE 0.45% 1,000 ML IV ×2 (08:07→10:21)
[2018-04-22] MEDS: METOPROLOL (XL) 100 MG TAB PO (08:08)
[2018-04-22] MEDS: VENLAFAXINE (XR) 75 MG CAP PO (08:08)
[2018-04-22] MEDS: LEVETIRACETAM 500 MG TAB PO ×2 (08:08→20:04)
[2018-04-22] MEDS: AMLODIPINE 5 MG TAB PO (08:09)
[2018-04-22] MEDS: CEFTRIAXONE 1 GM/50 ML (PMX) 50 ML IVPB (11:36)
[2018-04-22] MEDS: POTASSIUM CHLORIDE 100 ML IVPB ×2 (15:25→17:15)
[2018-04-22] MEDS: MAGNESIUM SULFATE 3 GM in DEXTROSE 5% 100 ML IVPB (16:03)
[2018-04-22] MEDS: ATORVASTATIN 40 MG TAB PO (20:04)
[2018-04-23] MEDS: HYDROCODONE/APAP (5/325) TAB PO ×5 (02:35→23:42)
[2018-04-23 06:10] LABS: ADD MAN DIFF? NO; BASOPHILS % 0.4 % (0.0-2.0); EOSINOPHILS # 0.1 10^3/ul (0.0-0.5); EOSINOPHILS % 0.8 % (0.0-7.0); HEMATOCRIT 35.9 % (37.0-47.0); LYMPHOCYTES # 1.2 10^3/ul (0.8-2.9); LYMPHOCYTES % 14.5 % (15.0-51.0); MEAN CORPUSCULAR HEMOGLOBIN 33.1 pg (29.0-33.0); MEAN CORPUSCULAR HGB CONC 33.4 g/dl (32.0-37.0); MEAN CORPUSCULAR VOLUME 98.9 fl (82.0-101.0); MONOCYTE # 0.8 10^3/ul (0.3-0.9); MONOCYTES % 9.4 % (0.0-11.0); NEUTROPHIL # 5.9 10^3/ul (1.6-7.5); NEUTROPHILS % 73.9 % (39.0-77.0); PLATELET COUNT 235 10^3/UL (140-415); RED BLOOD COUNT 3.63 10^6/ul (4.20-5.40); RED CELL DISTRIBUTION WIDTH 13.7 % (11.5-14.5)
[2018-04-23] MEDS: LEVOTHYROXINE 88 MCG TAB PO (06:17)
[2018-04-23 06:58] LABS: ANION GAP 13 (8-16); BLOOD UREA NITROGEN 11 mg/dl (7-20); CALCIUM 9.4 mg/dl (8.4-10.2); CARBON DIOXIDE 30 mmol/L (21-31); CHLORIDE 100 mmol/L (97-110); CREATININE 0.61 mg/dl (0.44-1.00); GLUCOSE 135 mg/dl (70-220); MAGNESIUM 1.3 mg/dl (1.7-2.5); POTASSIUM 4.1 mmol/L (3.5-5.1); SODIUM 139 mmol/L (135-144)
[2018-04-23] MEDS: MAGNESIUM SULFATE 3 GM in DEXTROSE 5% 100 ML IVPB (07:37)
[2018-04-23] MEDS: VENLAFAXINE (XR) 75 MG CAP PO (09:05)
[2018-04-23] MEDS: LEVETIRACETAM 500 MG TAB PO ×2 (09:06→21:56)
[2018-04-23] MEDS: AMLODIPINE 5 MG TAB PO (09:06)
[2018-04-23] MEDS: METOPROLOL (XL) 100 MG TAB PO (09:07)
[2018-04-23] MEDS: SOD CHLORIDE 0.45% 1,000 ML IV (11:20)
[2018-04-23] MEDS: CEFTRIAXONE 1 GM/50 ML (PMX) 50 ML IVPB (12:06)
[2018-04-23 12:20] LABS: MAGNESIUM 2.2 mg/dl (1.7-2.5)
[2018-04-23] MEDS: ATORVASTATIN 40 MG TAB PO (21:56)
[2018-04-24] MEDS: SOD CHLORIDE 0.45% 1,000 ML IV ×2 (00:40→08:57)
[2018-04-24 05:48] LABS: ADD MAN DIFF? NO
[2018-04-24 05:52] LABS: WHITE BLOOD COUNT 7.6 10^3/ul (4.8-10.8)
[2018-04-24 05:52] LABS: BASOPHILS % 0.5 % (0.0-2.0); EOSINOPHILS # 0.1 10^3/ul (0.0-0.5); EOSINOPHILS % 0.8 % (0.0-7.0); HEMATOCRIT 38.4 % (37.0-47.0); LYMPHOCYTES % 13.7 % (15.0-51.0); MEAN CORPUSCULAR HEMOGLOBIN 33.2 pg (29.0-33.0); MEAN CORPUSCULAR HGB CONC 33.9 g/dl (32.0-37.0); MEAN CORPUSCULAR VOLUME 98.2 fl (82.0-101.0); MEAN PLATELET VOLUME 9.9 fl (7.4-10.4); MONOCYTE # 0.6 10^3/ul (0.3-0.9); MONOCYTES % 7.6 % (0.0-11.0); NEUTROPHIL # 5.8 10^3/ul (1.6-7.5); NEUTROPHILS % 76.3 % (39.0-77.0); PLATELET COUNT 277 10^3/UL (140-415); RED BLOOD COUNT 3.91 10^6/ul (4.20-5.40); RED CELL DISTRIBUTION WIDTH 13.4 % (11.5-14.5)
[2018-04-24] MEDS: LEVOTHYROXINE 88 MCG TAB PO (06:10)
[2018-04-24 06:20] LABS: ANION GAP 14 (8-16); BLOOD UREA NITROGEN 14 mg/dl (7-20); CALCIUM 9.9 mg/dl (8.4-10.2); CARBON DIOXIDE 30 mmol/L (21-31); CHLORIDE 101 mmol/L (97-110); CREATININE 0.68 mg/dl (0.44-1.00); GLUCOSE 136 mg/dl (70-220); MAGNESIUM 1.6 mg/dl (1.7-2.5); POTASSIUM 4.5 mmol/L (3.5-5.1); SODIUM 140 mmol/L (135-144)
[2018-04-24] MEDS: HYDROCODONE/APAP (5/325) TAB PO ×4 (06:21→20:55)
[2018-04-24 07:42] LABS: HEMOGLOBIN A1C 7.4 % (0-5.9)
[2018-04-24] MEDS: VENLAFAXINE (XR) 75 MG CAP PO (08:51)
[2018-04-24] MEDS: METOPROLOL (XL) 100 MG TAB PO (08:52)
[2018-04-24] MEDS: AMLODIPINE 5 MG TAB PO (08:52)
[2018-04-24] MEDS: LEVETIRACETAM 500 MG TAB PO ×2 (08:53→20:55)
[2018-04-24] MEDS: CEFTRIAXONE 1 GM/50 ML (PMX) 50 ML IVPB (11:48)
[2018-04-24] MEDS: MAGNESIUM SULFATE 3 GM in DEXTROSE 5% 100 ML IVPB (15:43)
[2018-04-24] MEDS: ATORVASTATIN 40 MG TAB PO (20:55)
[2018-04-25] MEDS: HYDROCODONE/APAP (5/325) TAB PO ×4 (02:55→20:23)
[2018-04-25] MEDS: SOD CHLORIDE 0.45% 1,000 ML IV ×2 (04:10→15:41)
[2018-04-25 05:52] LABS: ADD MAN DIFF? NO
[2018-04-25 05:56] LABS: WHITE BLOOD COUNT 6.7 10^3/ul (4.8-10.8)
[2018-04-25 05:56] LABS: BASOPHILS % 0.4 % (0.0-2.0); EOSINOPHILS % 0.4 % (0.0-7.0); HEMATOCRIT 38.4 % (37.0-47.0); HEMOGLOBIN 13.2 g/dl (12.0-16.0); LYMPHOCYTES % 15.5 % (15.0-51.0); MEAN CORPUSCULAR HEMOGLOBIN 33.7 pg (29.0-33.0); MEAN CORPUSCULAR HGB CONC 34.4 g/dl (32.0-37.0); MEAN PLATELET VOLUME 9.6 fl (7.4-10.4); MONOCYTE # 0.6 10^3/ul (0.3-0.9); MONOCYTES % 9.5 % (0.0-11.0); NEUTROPHIL # 4.9 10^3/ul (1.6-7.5); NEUTROPHILS % 73.5 % (39.0-77.0); PLATELET COUNT 283 10^3/UL (140-415); RED BLOOD COUNT 3.92 10^6/ul (4.20-5.40); RED CELL DISTRIBUTION WIDTH 13.4 % (11.5-14.5)
[2018-04-25] MEDS: LEVOTHYROXINE 88 MCG TAB PO (06:12)
[2018-04-25 06:53] LABS: ANION GAP 15 (8-16); BLOOD UREA NITROGEN 16 mg/dl (7-20); CALCIUM 10.1 mg/dl (8.4-10.2); CARBON DIOXIDE 29 mmol/L (21-31); CHLORIDE 102 mmol/L (97-110); GLUCOSE 142 mg/dl (70-220); MAGNESIUM 1.8 mg/dl (1.7-2.5); POTASSIUM 4.7 mmol/L (3.5-5.1); SODIUM 141 mmol/L (135-144)
[2018-04-25] MEDS: VENLAFAXINE (XR) 75 MG CAP PO (08:40)
[2018-04-25] MEDS: METOPROLOL (XL) 100 MG TAB PO (08:40)
[2018-04-25] MEDS: AMLODIPINE 5 MG TAB PO (08:41)
[2018-04-25] MEDS: LEVETIRACETAM 500 MG TAB PO ×2 (08:41→20:22)
[2018-04-25] MEDS: CEFTRIAXONE 1 GM/50 ML (PMX) 50 ML IVPB (12:12)
[2018-04-25] MEDS: ATORVASTATIN 40 MG TAB PO (20:22)
[2018-04-26] MEDS: HYDROCODONE/APAP (5/325) TAB PO ×2 (01:38→06:25)
[2018-04-26] MEDS: SOD CHLORIDE 0.45% 1,000 ML IV ×2 (03:46→06:00)
[2018-04-26] MEDS: LEVOTHYROXINE 88 MCG TAB PO (06:23)
[2018-04-26] MEDS: VENLAFAXINE (XR) 75 MG CAP PO (08:46)
[2018-04-26] MEDS: LEVETIRACETAM 500 MG TAB PO (08:46)
[2018-04-26] MEDS: AMLODIPINE 5 MG TAB PO (08:47)
[2018-04-26] MEDS: METOPROLOL (XL) 100 MG TAB PO (08:47)
== END 2018-04-26 12:20 | disposition home or self-care (01) | DRG 101 ==
LOC: 6WM 04-24 14:52 → E/R 22:09 → 6WM 04-24 15:14
PROVIDERS: Internal Medicine
DX: G40.909 Epilepsy, unspecified, not intractable, without status epilepticus (principal); E87.6 Hypokalemia; E83.42 Hypomagnesemia; E03.9 Hypothyroidism, unspecified; E78.5 Hyperlipidemia, unspecified; F41.9 Anxiety disorder, unspecified; F32.9 Major depressive disorder, single episode, unspecified; I10 Essential (primary) hypertension; M79.7 Fibromyalgia
CPT/HCPCS: 36415; 70450; 71045; 80048; 80053; 80307; 81001; 81003; 82962; 83036; 83605; 83735; 84443; 84484; 85025; 85610; 85730; 87040; 87086; 93005; 96374; 96375; 96376; 97110; 97116; 97161; 97530; 99291-25

== ENCOUNTER 2018-09-04 17:28 | Emergency (ER) | payer MEDICARE, OTHER ==
[2018-09-04 17:59] LABS: ADD MAN DIFF? NO
[2018-09-04 18:04] LABS: WHITE BLOOD COUNT 8.2 10^3/ul (4.8-10.8)
[2018-09-04 18:04] LABS: BASOPHILS % 0.5 % (0.0-2.0); EOSINOPHILS % 0.4 % (0.0-7.0); HEMATOCRIT 43.6 % (37.0-47.0); HEMOGLOBIN 14.7 g/dl (12.0-16.0); LYMPHOCYTES # 1.2 10^3/ul (0.8-2.9); LYMPHOCYTES % 14.4 % (15.0-51.0); MEAN CORPUSCULAR HEMOGLOBIN 32.9 pg (29.0-33.0); MEAN CORPUSCULAR HGB CONC 33.7 g/dl (32.0-37.0); MEAN CORPUSCULAR VOLUME 97.5 fl (82.0-101.0); MEAN PLATELET VOLUME 10.7 fl (7.4-10.4); MONOCYTE # 0.8 10^3/ul (0.3-0.9); MONOCYTES % 9.6 % (0.0-11.0); NEUTROPHIL # 6.1 10^3/ul (1.6-7.5); NEUTROPHILS % 74.5 % (39.0-77.0); PLATELET COUNT 368 10^3/UL (140-415); RED BLOOD COUNT 4.47 10^6/ul (4.20-5.40); RED CELL DISTRIBUTION WIDTH 12.1 % (11.5-14.5)
[2018-09-04 18:22] LABS: ALANINE AMINOTRANSFERASE 31 IU/L (13-69); ALBUMIN 4.9 g/dl (3.3-4.9); ALBUMIN/GLOBULIN RATIO 1.63; ALKALINE PHOSPHATASE 109 IU/L (42-121); ANION GAP 15 (5-13); ASPARTATE AMINO TRANSFERASE 44 IU/L (15-46); BILIRUBIN,INDIRECT 0.6 mg/dl (0-1.1); BILIRUBIN,TOTAL 0.6 mg/dl (0.2-1.3); BLOOD UREA NITROGEN 34 mg/dl (7-20); CALCIUM 11.6 mg/dl (8.4-10.2); CARBON DIOXIDE 28 mmol/L (21-31); CHLORIDE 99 mmol/L (97-110); CREATININE 1.67 mg/dl (0.44-1.00); Estimated GFR 31 mL/min (>60); GLUCOSE 202 mg/dl (70-220); POTASSIUM 3.6 mmol/L (3.5-5.1); SODIUM 142 mmol/L (135-144); TOTAL PROTEIN 7.9 g/dl (6.1-8.1)
[2018-09-04 18:30] LABS: ACETAMINOPHEN < 10.0 ug/ml (10.0-30.0); ETHANOL < 10.0 mg/dl (0-0); SALICYLATE < 1.0 mg/dl (5.0-30.0)
[2018-09-04 19:55] LABS: ADD UMIC YES; UR ASCORBIC ACID NEGATIVE (NEGATIVE); UR BACTERIA MANY /HPF (NONE SEEN); UR BILIRUBIN (Dip) NEGATIVE (NEGATIVE); UR BLOOD (Dip) 2+ mg/dL (NEGATIVE); UR CLARITY CLOUDY (CLEAR); UR COLOR YELLOW (YELLOW); UR GLUCOSE (Dip) NEGATIVE (NEGATIVE); UR KETONES (Dip) NEGATIVE (NEGATIVE); UR LEUKOCYTE ESTERASE (Dip) 3+ Leu/ul (NEGATIVE); UR MUCUS FEW /HPF (NONE SEEN); UR NITRITE (Dip) POSITIVE (NEGATIVE); UR NONSQUAMOUS EPITHELIAL CELL 1 /HPF (NONE SEEN); UR RBC 6 /HPF (0-5); UR SPECIFIC GRAVITY (Dip) 1.019 (1.003-1.030); UR SQUAMOUS EPITHELIAL CELL FEW /HPF (FEW); UR TOTAL PROTEIN (Dip) 2+ mg/dl (NEGATIVE); UR UROBILINOGEN (Dip) 1+ mg/dL (NEGATIVE); UR WBC 107 /HPF (0-5)
[2018-09-04 21:21] LABS: AMPHETAMINE/METHAMPHETAMINE Negative (NEGATIVE); BARBITURATES Negative (NEGATIVE); BENZODIAZEPINES Negative (NEGATIVE); CANNABINOIDS Negative (NEGATIVE); COCAINE Negative (NEGATIVE); OPIATES Negative (NEGATIVE)
[2018-09-04] MEDS: CIPROFLOXACIN 500 MG TAB PO (22:30)
[2018-09-05] MEDS: CEFTRIAXONE 1 GM INJ IM (01:50)
[2018-09-05] MEDS ORDERED: METOPROLOL 25 MG TAB (06:22)
[2018-09-05] MEDS: METOPROLOL 25 MG TAB PO (06:26)
== END 2018-09-05 08:31 ==
LOC: E/R 09-05 08:31
DX: R44.1 Visual hallucinations (principal); R40.2142 Coma scale, eyes open, spontaneous, at arrival to emergency department; R40.2362 Coma scale, best motor response, obeys commands, at arrival to emergency department; R40.2252 Coma scale, best verbal response, oriented, at arrival to emergency department; E86.0 Dehydration; E03.9 Hypothyroidism, unspecified; I10 Essential (primary) hypertension
CPT/HCPCS: 36415; 80053; 80307; 81001; 85025; 96372; 99285-25